=== PATIENT | female | born 1985 ===

== ENCOUNTER 2019-10-19 13:38 | Emergency (ER) | payer BC ==
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
--- NOTE | 2019-10-19 14:07 | CT ---
Head CT Technique: Multiple axial sections through the brain were obtained. Intravenous contrast was not utilized. Comparison: No prior intracranial imaging is available. Findings: Ventricles along with basal cisterns and sulci over the convexities are within normal limits for the patient's age. No abnormal parenchymal densities are seen. No evidence of intracranial hemorrhage. No midline shift or mass effect is seen. Bone window settings were reviewed. No acute calvarial abnormality is appreciated. Mastoid sinuses show nothing acute. Visualized paranasal sinuses also show nothing acute. Impression: 1. Nothing acute is appreciated on noncontrast head CT exam. Diagnostic code #1 Study was dictated in MDT
--- NOTE | 2019-10-19 14:07 | CT ---
CT cervical spine Technique: Multiple axial sections were obtained from above C1 inferiorly to the bottom of T2. Reconstructed sagittal and coronal images were reviewed. Comparison: No prior cervical spine imaging. Findings: Vertebral body heights and disc spaces are maintained. Mild degenerative change is noted between the dens and anterior arch of C1. No fracture is appreciated. No bony central or bony neural foraminal stenosis is seen. No abnormal subluxation is seen. Impression: 1. Mild degenerative change between the dens and anterior arch C1. 2. Nothing acute is appreciated on CT study of the cervical spine. Diagnostic code #2 Study was dictated in MDT
[2019-10-19] MEDS ORDERED: Iopamidol 755 Mg/ML 100 ML Bottle IVPUSH STA (14:12)
--- NOTE | 2019-10-19 14:43 | CT ---
CT chest Technique: Multiple axial sections were obtained from above the lung apices inferiorly through the lung bases. Intravenous contrast was utilized. Comparison: No prior chest imaging is available. Findings: Aorta shows no aneurysm. No mediastinal adenopathy or mediastinal hematoma is seen. No pericardial fluid is seen. Lungs are clear with no acute parenchymal change is seen within either lung. No pleural effusions are noted. No pneumothorax is seen. No acute rib abnormality is appreciated. Thoracic spine shows no compression deformities. Reconstructed sagittal images of the sternum appear within normal limits. Impression: 1. Nothing acute is appreciated on CT study of the chest. Diagnostic code #1 Study was dictated in MDT
--- NOTE | 2019-10-19 14:43 | CT ---
CT abdomen and pelvis Technique: Multiple axial sections were obtained from above the dome of the diaphragm inferiorly through the pubic symphysis. Intravenous contrast was utilized. No oral contrast has been given. Comparison: No prior abdominal imaging is available. Findings: Visualized lung bases show nothing acute. Liver contains no focal abnormality. Spleen appears within normal limits. Adrenal glands show no nodule. Gallbladder contains no calcified gallstones. Kidneys show symmetric contrast enhancement without hydronephrosis or mass. Pancreas is within normal limits. Aorta shows no aneurysm. No retroperitoneal adenopathy or mesenteric abnormalities are seen. No pelvic mass or adenopathy is seen. Uterus appears somewhat abnormal with two endometrium raising the possibility of bicornuate uterus. Cystic areas are seen within the uterus and pelvic ultrasound is recommended to rule out . No free fluid or inflammatory change is appreciated. Bone window settings were reviewed. No acute osseous finding is seen. Mild degenerative change is noted within the lower lumbar spine. Small fat-containing umbilical hernia is noted. Impression: 1. Abnormal uterus as noted above. Please correlate with pelvic ultrasound. 2. Nothing acute is appreciated on CT study of the abdomen and pelvis. Diagnostic code #3 Study was dictated in MDT
--- NOTE | 2019-10-19 14:43 | CT ---
CT lumbar spine Technique: Multiple axial sections through the lumbar spine were obtained. Reconstructed sagittal and coronal images were reviewed. Findings: Vertebral body heights are maintained. Mild disc space narrowing is noted at L4-L5 and L5-S1. Diffuse posterior disc bulge at L5-S1 with calcification of the posterior annulus. Mild posterior osteophytes are noted at L4-L5. Sacroiliac joints appear within normal limits. No fracture is identified. No abnormal subluxation is seen. No bony central or bony neural foraminal stenosis is noted. Impression: 1. Degenerative change as noted above. 2. Nothing acute is appreciated on CT study of the lumbar spine. Diagnostic code #2 Study was dictated in MDT
[2019-10-19 14:46] LABS: BLOOD UREA NITROGEN,BUN 10 mg/dL (7.0-18.0); CARBON DIOXIDE,CO2 16.7 mmol/L (21.0-32.0); CHLORIDE,CL 102 mmol/L (98-107); GLUCOSE RANDOM 117 mg/dL (74-106); POTASSIUM,K 3.6 mmol/L (3.5-5.1); SODIUM,NA 137 mmol/L (136-145)
--- NOTE | 2019-10-19 15:12 | CT ---
CT thoracic spine Technique: Multiple axial sections through the thoracic spine were obtained. Reconstructed sagittal and coronal images were obtained. Findings: Vertebral body heights and disc spaces are maintained. Vertebral bodies and posterior arches are intact. No fracture is seen. No bony central or bony neural foraminal stenosis is seen. No abnormal subluxation is appreciated. Minimal scattered anterior endplate osteophytes are seen. Impression: 1. Minimal anterior endplate osteophytes scattered within the thoracic spine. 2. No acute abnormality is appreciated on CT study of the thoracic spine. Diagnostic code #2 Study was dictated in MDT
[2019-10-19 16:52] VITALS: BP 137/82; PULSE 83
== END 2019-10-19 16:17 | disposition home or self-care (01) ==
LOC: MW.ED 13:38
DX: S06.0X1A Concussion with loss of consciousness of 30 minutes or less, initial encounter (principal); S00.83XA Contusion of other part of head, initial encounter; F41.9 Anxiety disorder, unspecified; F32.9 Major depressive disorder, single episode, unspecified; Z79.899 Other long term (current) drug therapy; M41.9 Scoliosis, unspecified; V47.5XXA Car driver injured in collision with fixed or stationary object in traffic accident, initial encounter
CPT/HCPCS: 36415; 70450; 71260; 72125; 72128; 72131; 74177; 80053; 80307; 85025; 85610; 86850; 86900; 86901; 93005; 99284; Q9967